=== PATIENT | female | born 1985 | race Caucasian/White ===

== ENCOUNTER 2023-11-16 09:15 | Outpatient (CLI) | payer BC, SELFPAY | END 2023-11-16 09:16 | disposition home or self-care (01) | PROVIDERS: Visit Provider Registered Nurse | DX: Z01.419 Encounter for gynecological examination (general) (routine) without abnormal findings (principal); N92.0 Excessive and frequent menstruation with regular cycle; R53.83 Other fatigue | CPT/HCPCS: 80061; 82306; 82947; 84443 ==

== ENCOUNTER 2024-03-05 07:27 | Outpatient (CLI) | payer BC, SELFPAY ==
--- NOTE | 2024-03-05 07:45 | CRLHL7_ITS ---
For Patients: As a result of the Cures Act, medical imaging exams and procedure reports are released immediately into your electronic medical record. You may view this report before your referring provider. If you have questions, please contact your health care provider. DIGITAL DIAGNOSTIC BILATERAL MAMMOGRAM USING TOMOSYNTHESIS AND COMPUTER-AIDED DETECTION RIGHT BREAST ULTRASOUND CLINICAL HISTORY: RIGHT breast lump. COMPARISON: None. TECHNIQUE: Digital BILATERAL mammogram in four projections with computer-aided detection. Tomosynthesis was used in this interpretation. Real-time ultrasound imaging of RIGHT breast with imaging documentation. BREAST COMPOSITION: There are scattered areas of fibroglandular density. FINDINGS: 3D CC/MLO BILATERAL mammogram images submitted. No suspicious mass or architectural distortion. No suspicious calcifications or adenopathy. Targeted RIGHT breast ultrasound performed in the area of concern at 6 o`clock 12 cm from the nipple. Normal fibroglandular tissue. No fibrocystic change or mass. IMPRESSION: No suspicious findings. RECOMMENDATIONS: Routine age-appropriate screening mammography. Results and recommendations discussed with the patient. BI-RADS Category 2: Benign A lay language report of this examination will be provided to the patient. Dictated by Hermilo Gregory MD @ 03/05/2024 9:50:35 AM jj/Dictated by: Hermilo Gregory MD @ 03/05/2024 9:50:00 AM (Electronically Signed)
--- NOTE | 2024-03-05 08:15 | CRLHL7_ITS ---
For Patients: As a result of the Cures Act, medical imaging exams and procedure reports are released immediately into your electronic medical record. You may view this report before your referring provider. If you have questions, please contact your health care provider. PLEASE SEE DIGITAL DIAGNOSTIC BILATERAL MAMMOGRAM PERFORMED SAME DAY CRL:[facility] miguel/Dictated by: Hermilo Gregory MD @ 03/05/2024 9:50:00 AM (Electronically Signed)
== END 2024-03-05 07:28 | disposition home or self-care (01) ==
LOC: MAMMO 07:28
PROVIDERS: Visit Provider Physician Assistant Medical
DX: N63.10 Unspecified lump in the right breast, unspecified quadrant (principal)
CPT/HCPCS: 76642; 77066; G0279

== ENCOUNTER 2025-04-12 13:41 | Outpatient (CLI) | payer BC, SELFPAY ==
--- NOTE | 2025-04-12 14:00 | CRLHL7_ITS ---
For Patients: As a result of the Century Cures Act, medical imaging exams and procedure reports are released immediately into your electronic medical record. You may view this report before your referring provider. If you have questions, please contact your health care provider. INDICATION: BILATERAL SCREENING MAMMOGRAM, ASYMPTOMATIC 39 Y/O FEMALE COMPARISON: 03/05/2024 TECHNIQUE: Digital mammogram in CC and MLO projections including computer-aided detection (CAD) and tomosynthesis. BREAST COMPOSITION: There are scattered areas of fibroglandular density. FINDINGS: No suspicious findings. ASSESSMENT: BI-RADS 1 Negative RECOMMENDATION: Annual screening mammogram. A lay language report of this examination will be provided to the patient. Dictated by: Hermilo Gregory MD @ 04/15/2025 10:48:40 (Electronically Signed)
== END 2025-04-12 13:42 | disposition home or self-care (01) ==
LOC: MAMMO 13:41
PROVIDERS: Visit Provider Obstetrics & Gynecology
DX: Z12.31 Encounter for screening mammogram for malignant neoplasm of breast (principal)
CPT/HCPCS: 77063; 77067